=== PATIENT | female | born 1990 ===

== ENCOUNTER 2025-09-17 16:32 | Emergency (ER) | payer MEDICAID, SELFPAY ==
--- NOTE | 2025-09-17 16:37 | ED.BACK ---
HPI - Back Pain/Injury General Chief Complaint: Back Pain/Injury Stated Complaint: back pain Time Seen by Provider: 09/17/25 21:47 Source: patient Mode of arrival: ambulatory Limitations: language barrier (Bleaching [employer] services utilized) History of Present Illness ED Provider: Conor PEPPER HPI Narrative: Patient is a 35-year-old female presenting with a 3-day history of pressure-like pain that begins in the left lower back/hip region and radiates down the lateral and posterior aspect of the left leg. Pain worsens when standing, bending, twisting, or lying flat supine, and is worst when lying on one side. Sitting affords partial relief. Onset was sudden while going up stairs; no history of trauma or heavy lifting reported. The patient has tried acetaminophen, ibuprofen, and a dose of naproxen earlier this morning with incomplete relief. No known medication allergies. Denies urinary frequency, dysuria, hematuria, or fever; does endorse chills without measured fever. No pertinent past medical history. Related Data Previous Rx's ?Medication ?Instructions ?Recorded acetaminophen 500 mg capsule 1,000 mg (2 x 500 mg) PO .q8 PRN 09/17/25 fever or pain #30 caps cyclobenzaprine 10 mg tablet 10 mg PO TID PRN muscle spasm #14 09/17/25 tabs ibuprofen 600 mg tablet 600 mg PO Q8H PRN fever or pain 09/17/25 #30 tabs Allergies Allergy/AdvReac Type Severity Reaction Status Date / Time No Known Allergies Allergy Verified 09/17/25 16:40 Review of Systems Review of Systems: Yes all other systems are reviewed and are negative PMFSH Social History Social History Advance Directives: No Advance Directives Information Provided: Yes Physical Exam Vital Signs: Vital Signs: Last Vital Signs Temp 98 F 09/17/25 16:38 Pulse 100 09/17/25 16:38 Resp 18 09/17/25 16:38 BP 149/77 H 09/17/25 16:38 Pulse Ox 99 09/17/25 16:38 O2 Del Method Room Air 09/17/25 16:38 BMI result Body Mass Index 49.2 CONSTITUTIONAL: The patient appears non-toxic, well nourished and in no acute distress. Vital signs as documented. HEAD: Atraumatic, normocephalic. EYES: EOMs grossly intact, pupils equal, conjunctiva clear, no exudate. ENT: Nares patent, no discharge. Airway patent, no audible stridor, visible mucosa is pink and moist without noted lesions. NECK: trachea is midline, no obvious masses or gross abnormalities. CHEST: Symmetric movement, normal appearance. LUNGS: Non-labored work of breathing. CARDIAC: No evidence of hypoperfusion. ABDOMEN: Nondistended, no obvious injury. : Deferred. BACK: Tenderness over the left lateral thigh/IT band and posterior leg; focal tenderness in the left lower back/hip region. No crepitus or midline step-off. Straight-leg raise elicits pain when the patient holds the leg up; less pain when this provider lifts the leg. EXTREMITIES: Moves all extremities spontaneously without reported pain. No obvious injury or deformity noted. NEURO: Alert and oriented x3, CN II-XII appear grossly intact. Cerebellar Functioning grossly intact. Speech clear and appropriate. SKIN: Warm, dry, color appropriate. No rashes or lesions noted. Course Course Course Narrative: This is a Rapid Medical Exam performed in triage by Nahomy Inman PA-C. Full HPI, ROS and PE to be performed by primary ED provider. 35 yo F presenting to the ED c/o L side/flank pain radiating down LLE & to LLQ x3 days. Pain worse w/movement. denies urinary sx PE: NAD, ambulating w/steady gait Plan: labs, UA Medical Decision Making Medical Decision Making MDM Narrative: 10:21 PM 09/17/2025 (Temitope PEPPER): Patient is a 35-year-old female presenting with a 3-day history of pressure-like pain that begins in the left lower back/hip region and radiates down the lateral and posterior aspect of the left leg. Pain worsens when standing, bending, twisting, or lying flat supine, and is worst when lying on one side. Sitting affords partial relief. Onset was sudden while going up stairs; no history of trauma or heavy lifting reported. The patient has tried acetaminophen, ibuprofen, and a dose of naproxen earlier this morning with incomplete relief. No known medication allergies. Denies urinary frequency, dysuria, hematuria, or fever; does endorse chills without measured fever. No pertinent past medical history. Exam reveals tenderness over the left lateral thigh/IT band and posterior leg; focal tenderness in the left lower back/hip region. No crepitus or midline step-off. Straight-leg raise elicits pain when the patient holds the leg up; less pain when this provider lifts the leg. The patient's laboratory evaluation patient demonstrates no leukocytosis, anemia, electrolyte abnormality, or BHAVIN. LFTs are unremarkable. Patient's urinalysis shows small blood and small leukocyte esterase but with 6-10 squamous epithelial cells and no bacteria or nitrites. Patient denies any urinary symptoms, urinalysis not concerning for UTI. Urine test is negative. Patient's presentation is most consistent with musculoskeletal strain with associated sciatica of the left leg. Given the duration of symptoms and patient is well-appearing presentation with the associated nausea or vomiting, there was no concern for kidney stone at this time. The patient will be treated with ibuprofen, Tylenol, Flexeril, and a lidocaine patch. We will discharge with supportive care and muscle relaxer. Lab Data 09/17/25 16:46 09/17/25 16:46 Labs: Lab Results 09/17/25 09/17/25 Range/Units 16:46 16:50 WBC 9.7 (4.8-10.8) X10*3/uL RBC 4.92 (4.20-5.50) X10*6/uL Hgb 12.9 (12.0-16.0) g/dl Hct 39.8 (37.0-47.0) % MCV 80.9 (80.0-98.0) fL MCH 26.2 L (27.0-33.0) pg MCHC 32.4 (31.0-35.0) g/dl RDW 12.6 (11.0-16.0) % Plt Count 267 (160-400) X10*3/uL MPV 9.4 (9.4-12.3) fL Immature Gran % (Auto) 0.4 (0.0-0.4) % Neut % (Auto) 66.2 (45-73) % Lymph % (Auto) 24.9 (20-40) % Rich % (Auto) 5.9 (2-11) % Eos % (Auto) 2.1 (0-4) % Baso % (Auto) 0.5 (0-2) % Lymph # (Auto) 2.4 (1.2-4.9) X10*3/uL Rich # (Auto) 0.6 (0.1-1.2) X10*3/uL Eos # (Auto) 0.2 (0.0-0.4) X10*3/uL Baso # (Auto) 0.1 (0.0-0.2) X10*3/uL Abs Immat Gran (auto) 0.04 H (0.00-0.03) X10*3/uL Absolute Neuts (auto) 6.4 (2.0-8.3) x10*3/uL Absolute Nucleated RBC 0.000 (0.0-0.012) X10*3/uL Nucleated RBC % (auto) 0.0 (0.0-0.2) /100WBC Sodium 140 (135-145) mmol/L Potassium 3.9 (3.3-5.1) mmol/L Chloride 107 (96-108) mmol/L Carbon Dioxide 24 (22-29) mmol/L Anion Gap 13 (12-20) BUN 11 (9-16) mg/dL Creatinine 0.77 (0.5-1.4) mg/dL Estim Creat Clear Calc 131.8 Estimated GFR > 60 Random Glucose 93 (60-115) mg/dL Calcium 9.0 (8.4-10.2) mg/dL Magnesium 1.9 (1.6-2.6) mg/dL Total Bilirubin 0.4 (0.0-1.0) mg/dL Direct Bilirubin 0.1 (0.0-0.5) mg/dL AST 24 (5-31) U/L ALT 25 (0-31) U/L Alkaline Phosphatase 125 H (39-117) U/L Total Protein 7.7 (6.5-8.0) g/dL Albumin 4.6 (3.5-5.0) g/dL Urine Color Yellow Urine Appearance Clear Urine pH 5.5 (5.0-9.0) Ur Specific [place] 1.025 (1.005-1.025) Urine Protein Negative (Neg-Trace) mg/dL Urine Glucose (UA) Negative (Negative) mg/dL Urine Ketones Negative (Negative) mg/dL Urine Blood Small (1+) H (Negative) Urine Nitrite Negative (Negative) Ur Leukocyte Esterase Small (1+) H (Negative) Urine RBC 0-2 (0-2) /HPF Urine WBC 0-5 (0-5) /HPF Ur Squamous Epith Cells 6-10 (0-2) /HPF Urine Bacteria None Seen (None Seen) Hyaline Casts 0-2 (0-2) /LPF Urine Test NEGATIVE (NEGATIVE) Discharge Plan Discharge Clinical Impression: Strain of lumbar region, Lumbar radiculopathy Patient Disposition: Home, Self-Care Instructions: Low Back Strain (ED), Lumbar Radiculopathy (ED), P.R.I.C.E. Treatment (ED), Lower Back Exercises (ED) Additional Instructions: Maggi por elegir el [facility] para [place] atenci?n hoy. [place] evaluaci?n de laboratorio, an?lisis de orina, signos vitales y examen de hoy son tranquilizadores. No se encontr? evidencia de infecci?n urinaria o sist?shania, ni de ninguna otra causa urgente para rashaad s?ntomas. En antionette momento no hay indicaci?n para hospitalizaci?n ni para observaci?n continua en el servicio de urgencias, y es seguro darle de john. [place] examen de piyush es compatible con cuate distensi?n de los m?sculos lumbares inferiores izquierdos que causa inflamaci?n del nervio ci?adysi. Esta afecci?n se conoce donta radiculopat?a lumbar. El tratamiento consiste en reducir la inflamaci?n. Debe samaria dosis alternas de ibuprofeno de 600 mg y paracetamol de 1000 mg cada 4 horas salvatore los pr?ximos 2 a 3 d?as, y luego seg?n sea necesario para cualquier dolor adicional. Descanse la monica afectada y aplique hielo salvatore 20 minutos cada hora. [place] parte de [place] plan de tratamiento, tambi?n se le nix recetado un relajante muscular llamado Flexeril. [place] antionette medicamento solo para el dolor o espasmos intensos que no se alivien con ibuprofeno y/o paracetamol. Los relajantes musculares pueden conllevar un alto riesgo de adicci?n y abuso involuntarios. [place] antionette medicamento solo seg?n las indicaciones y solo si es absolutamente necesario. Antionette medicamento puede causar somnolencia; no debe conducir, operar maquinaria pesada ni ser el ?niranjan cuidador de ni?os mientras lo debra. Le hemos aplicado un parche de lidoca?na; si le proporciona un alivio significativo, puede comprar parches adicionales en cualquier farmacia local sin receta m?dica. Consulte con [place] m?dico de cabecera para cuate reevaluaci?n, manejo adicional de rashaad s?ntomas y atenci?n preventiva continua. Si no tiene un m?dico de cabecera, llame al [facility] al [phone] para asignarle nikole. Mientras espera a que se le asigne un m?dico de cabecera, puede llamar a nuestra Cl[facility] de [place]?n sin Karina [facility] al [phone] para necesidades que no deshawn de emergencia. Regrese al departamento de emergencias si presenta un cambio repentino o grave en rashaad s?ntomas, fiebre superior a 38 ?C (100.4 ?F) que no mejora con paracetamol o ibuprofeno, v?mitos recurrentes o cualquier otro s?ntoma o preocupaci?n nuevos o que empeoren. Thank you for choosing [facility]'s Emergency Department for your care today. Your laboratory evaluation, urinalysis, vital signs, and exam today are all reassuring. There was no evidence of any urinary or systemic infection, or other emergent cause for your symptoms. At this time there is no indication for admission to the hospital or continued ED observation, and it is safe to discharge you home. Your exam today is consistent with a strain of your lower left lumbar muscles causing inflammation of your sciatic nerve. This is a condition known as lumbar radiculopathy. The treatment for this is reducing inflammation. You should take alternating (staggered) doses of ibuprofen 600mg and Tylenol 1000mg every 4 hours for the next 2-3 days, and then as needed for any additional pain. Please rest the affected area, and apply ice for 20 minutes every hour. As a part of your care plan, you have also been prescribed a muscle relaxer called Flexeril. Please take this medication only for severe pain or spasm that is not relieved by ibuprofen and/or Tylenol. Muscle relaxer medications can carry high risk of unintentional addiction and abuse. Take this medication only as directed and only if absolutely necessary. This medicine can make you drowsy, you are not allowed to drive, operate heavy machinery, or be the sole care provider for children while taking this medication. We have treated you with a lidocaine patch, if you find this provides you significant relief additional patches can be purchased at any local pharmacy without a prescription. Please follow up with your primary care physician for re-evaluation, additional management of your symptoms, and continued preventative care. If you do not have a primary care physician, please call the [facility] at [phone] to establish a new primary care physician. While waiting to establish your new primary care physician, you can call our [facility] at [phone] for non-emergency needs. Please return to the emergency department if you develop a severe or sudden change in your symptoms, a fever over 100.4 that does not improve with Tylenol or Ibuprofen, recurrent vomiting, or any other new or worsening symptoms or concerns. Prescriptions: New cyclobenzaprine 10 mg tablet 10 mg PO TID PRN (Reason: muscle spasm) Qty: 14 0RF ibuprofen 600 mg tablet 600 mg PO Q8H PRN (Reason: fever or pain) Qty: 30 0RF acetaminophen 500 mg capsule 1,000 mg PO .q8 PRN (Reason: fever or pain) Qty: 30 0RF Print Language: Upper Sorbian
[2025-09-17 16:38] VITALS: BP 149/77; PULSE 100; RESP 18; TEMP 36.6; O2SAT 99; BMI 49.2
[2025-09-17 16:52] LABS: MANUAL DIFF FLAG NO
[2025-09-17 16:54] LABS: Hematocrit 39.8 % (37.0-47.0); Hemoglobin 12.9 g/dl (12.0-16.0); Imm Gran Abs Auto 0.04 X10*3/uL (0.00-0.03); Imm Gran Pct Auto 0.4 % (0.0-0.4); Lymphocytes Absolute Auto 2.4 X10*3/uL (1.2-4.9); Mean Corpuscular HGB Conc 32.4 g/dl (31.0-35.0); Mean Corpuscular Hemoglobin 26.2 pg (27.0-33.0); Mean Corpuscular Volume 80.9 fL (80.0-98.0); NRBC Abs Auto 0.000 X10*3/uL (0.0-0.012); NRBC Pct Auto 0.0 /100WBC (0.0-0.2); Platelet Count 267 X10*3/uL (160-400); Red Blood Count 4.92 X10*6/uL (4.20-5.50); White Blood Count 9.7 X10*3/uL (4.8-10.8)
[2025-09-17 16:58] LABS: Appearance Urine Clear; Glucose Urine UA Negative (Negative); PH 5.5 (5.0-9.0); Specific Gravity - Urine 1.025 (1.005-1.025); UMIC TRIGGER UACC YES
[2025-09-17 16:59] LABS: UPreg QC Valid YES
[2025-09-17 17:08] LABS: Alanine Aminotransferase 25 U/L (0-31); Albumin Level 4.6 g/dL (3.5-5.0); Alkaline Phosphatase 125 U/L (39-117); Anion Gap 13 (12-20); Aspartate Amino Transferase 24 U/L (5-31); Blood Urea Nitrogen 11 mg/dL (9-16); Calcium 9.0 mg/dL (8.4-10.2); Carbon Dioxide 24 mmol/L (22-29); Chloride 107 mmol/L (96-108); Creatinine Clr Calc Pharmacy 131.8; Estimated Glomerular Filt Rate > 60; Magnesium 1.9 mg/dL (1.6-2.6); Potassium 3.9 mmol/L (3.3-5.1); Sodium 140 mmol/L (135-145); Total Protein 7.7 g/dL (6.5-8.0)
[2025-09-17 17:13] LABS: UACC Culture Trigger YES
[2025-09-17] MEDS: Lidocaine 4 % Patch ADH..PATCH 1 PATCH TRANSDERMA (22:39)
[2025-09-17 22:46] VITALS: BP 144/70; PULSE 94; RESP 18; TEMP 37; O2SAT 98
== END 2025-09-17 22:49 | disposition home or self-care (01) ==
PROVIDERS: Physician Assistant; Emergency Provider Emergency Medicine
DX: S39.012A Strain of muscle, fascia and tendon of lower back, initial encounter (principal); X58.XXXA Exposure to other specified factors, initial encounter; M54.16 Radiculopathy, lumbar region; Y93.9 Activity, unspecified; Y92.9 Unspecified place or not applicable; Y99.9 Unspecified external cause status
CPT/HCPCS: 36415; 80048; 80076; 81001; 81025; 83735; 85025; 87086; 99283